=== PATIENT | female | born 1990 | race Two or more races ===

== ENCOUNTER 2021-10-09 21:54 | Emergency (ER) | payer SELFPAY | END 2021-10-09 22:13 | disposition left against medical advice (07) | LOC: EMS 21:55 | DX: T40.411A Poisoning by fentanyl or fentanyl analogs, accidental (unintentional), initial encounter (principal); F17.210 Nicotine dependence, cigarettes, uncomplicated; Z88.8 Allergy status to other drugs, medicaments and biological substances; Y92.89 Other specified places as the place of occurrence of the external cause; Z53.21 Procedure and treatment not carried out due to patient leaving prior to being seen by health care provider ==